=== PATIENT | female | born 1950 | race Caucasian/White ===

== ENCOUNTER 2018-05-22 09:17 | Outpatient (CLI) | payer MEDICARE, MEDICAID ==
--- NOTE | 2018-05-23 08:30 | Diagnostic Imaging Report ---
Left breast ultrasound HISTORY: Pain Sonographic sector images obtained about the quadrants of the left breast. Exam is somewhat limited due to lack of patient cooperation and difficulty in mobility. No abnormal masses. Specifically, no abnormal solid or cystic lesions. IMPRESSION: Negative examination. This examination should not preclude further evaluation of a clinically palpable suspicious lesion.
--- NOTE | 2018-05-23 08:31 | Diagnostic Imaging Report ---
Right breast ultrasound HISTORY: Pain Sonographic sector images obtained about the quadrants of the right breast. Exam limited due to difficulty in patient cooperation and limited mobility. No focal lesions are seen. No abnormal solid or cystic masses. IMPRESSION: Negative examination. This examination should not preclude further evaluation of a clinically palpable suspicious lesion.
== END 2018-05-22 11:30 | disposition home or self-care (01) ==
LOC: RAD 09:17
DX: N64.4 Mastodynia (principal); E11.9 Type 2 diabetes mellitus without complications; I11.0 Hypertensive heart disease with heart failure; I50.9 Heart failure, unspecified; F29 Unspecified psychosis not due to a substance or known physiological condition
CPT/HCPCS: 76642